=== PATIENT | female | born 1995 | race Caucasian/White ===

== ENCOUNTER → 2019-11-18 15:40 | Outpatient (BNVA) | payer SELFPAY | PROVIDERS: Family Provider Nurse Practitioner Family; PCP Nurse Practitioner Family; Visit Provider Nurse Practitioner Family | DX: R39.9 Unspecified symptoms and signs involving the genitourinary system (principal); E03.9 Hypothyroidism, unspecified | CPT/HCPCS: 80053; 81000; 84443 ==

== ENCOUNTER 2020-01-29 11:34 | Emergency (ER) | payer SELFPAY ==
[2020-01-29 11:43] VITALS: BP 141/88; PULSE 88; RESP 18; TEMP 36.7; O2SAT 99; BMI 48.4
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
--- NOTE | 2020-01-29 11:55 | US_ITS ---
WS: [id number] PELVIC ULTRASOUND REASON FOR VISIT: vaginal bleeding, pain TECHNIQUE: Grayscale and Doppler transabdominal and transvaginal pelvic ultrasound. FINDINGS: Uterus measures 7.7 cm x 4.7 cm x 4.7 cm, right ovary measures 2.7 cm x 1.2 cm x 2.3 cm, and left ova ry measures 3.4 cm x 2.5 cm x 3.4 cm. Cervix shows a cystic structure measures 0.79 The endometrium is thickened measures 1.37 cm. US/US pelvic with transvaginal IMPRESSION: Thickened irregular endometrium cannot exclude endometrial neoplasm Nabothian cyst of the cervix
[2020-01-29] MEDS: sodium chloride 0.9% 500 ML 999 ML IV (12:18)
[2020-01-29] MEDS: ketorolac 30 mg/mL INJ 15 MG IVP (12:19)
[2020-01-29 12:21] VITALS: RESP 18
[2020-01-29] MEDS: morphine 4 mg/mL SDV 1 mL 2 MG IVP (12:21)
[2020-01-29 12:25] LABS: Basophils # 0.1 10^3/uL (0.0-0.1); Basophils % 0.6 %; Eosinophils # 0.1 10^3/uL (0.0-0.8); Eosinophils % 0.9 %; Hematocrit 39.7 % (37.0-47.0); Hemoglobin 12.1 g/dL (11.5-15.3); Lymphocytes # 2.1 10^3/uL (0.8-4.8); Lymphocytes % 26.7 %; Mean Corpuscular HGB Conc 30.5 g/dL (30.0-36.0); Mean Corpuscular Hemoglobin 23.9 pg (28.0-34.0); Mean Corpuscular Volume 78.5 fL (81-99); Mean Platelet Volume 10.3 fL (7.4-10.4); Monocytes # 0.5 10^3/uL (0.2-0.9); Monocytes % 6.6 %; Neutrophils % 65.1 %; Nucleated Red Blood Cells % 0 %; Platelet Count 428 10^3/cmm (130-400); Red Blood Count 5.06 10^6/uL (4.1-5.3); Red Cell Distribution Width 16.4 % (12.1-15.1); White Blood Count 7.8 10^3/uL (4.0-10.0)
[2020-01-29 12:35] VITALS: BP 120/65; RESP 18; O2SAT 97
[2020-01-29 12:36] LABS: HCG, Serum Qual Negative (Negative)
[2020-01-29 12:38] LABS: Add Urine Microscopic? YES; Bilirubin Urine Neg (NEGATIVE); Blood Urine 3+ (Negative); Glucose Urine UA Norm (Normal); Ketones Urine Negative (Negative); Leukocyte Esterase Urine Negative (Negative); Nitrate Urine Negative (Negative); Protein Urine Neg (Negative); Urine Color Yellow (Yellow); Urobilinogen Urine Norm (Negative); pH Urine 6 (5-7)
[2020-01-29 12:39] LABS: Add Urine Culture? Yes; Bacteria Urine TRACE; RBC Urine 80-100 /hpf (0-2); Squamous Epithelial Cell Urine 0-4 (0-5); WBC Urine 0-4 /hpf (0-5)
[2020-01-29 12:40] LABS: Alanine Aminotransferase 34 U/L (0-33); Albumin Level 4.5 g/dL (3.5-5.2); Alkaline Phosphatase 71 IU/L (35-105); Anion Gap 17.1 (5-19); Aspartate Amino Transferase 19 U/L (0-32); Blood Urea Nitrogen 10 mg/dL (6-20); Calcium 9.7 mg/dL (8.5-10.5); Carbon Dioxide 22 mmol/L (22-29); Chloride 103 mmol/L (98-107); Globulin 3.5 g/dL (1.3-4.6); Glomerular Filtration Rate 151.6 mL/min (90-130); Glucose 86 mg/dL (65-115); Osmolality Calculated 281 mOsm/kg (285-295); Potassium 4.1 mmol/L (3.5-5.1); Sodium 138 mmol/L (136-145); Total Bilirubin 0.4 mg/dL (0.15-1.2)
[2020-01-29 14:40] VITALS: BP 118/64; PULSE 67; RESP 18; O2SAT 96
== END 2020-01-29 14:40 | disposition home or self-care (01) ==
PROVIDERS: Emergency Provider Nurse Practitioner Family; Family Provider Nurse Practitioner Family; PCP Nurse Practitioner Family
DX: E28.2 Polycystic ovarian syndrome (principal); R10.2 Pelvic and perineal pain
CPT/HCPCS: 12345; 76830; 76856; 80053; 81001; 84703; 85025; 86850; 86900; 87086; 96361; 96374; 96375; 99283; J1885; J2270; J7040

== ENCOUNTER 2020-04-03 18:28 | Emergency (ER) | payer MEDICAID, SELFPAY ==
--- NOTE | 2020-04-03 18:33 | US_ITS ---
WS: [id number] ULTRASOUND EARLY TECHNIQUE: Transabdominal sonography of the pelvis was performed. Followed by transvaginal sonography to better evaluate the uterus and ovaries. CLINICAL INFORMATION: threatened miscarriage LMP: 02/07/2020 Beta hCG: Unknown. COMPARISON: January 29, 2020 FINDINGS: UTERUS AND GESTATIONAL SAC Intrauterine gestations: Gestational sac with pole and no visualized movement. No cardiac activ ity. Estimated gestational age: 7w5d Zephyr rump length (CRL): 1.4 cm. heart motion: 0 BPM. Subchorionic hemorrhage: None. OVARIES Right ovary: Normal. Left ovary: Normal. FREE FLUID None. US/US OB <=14 wk fetus w transvag IMPRESSION: 1. Gestational sac with pole and no visualized movement or cardiac activ ity compatible with demise. Recommend short interval follow-up for confir mation. 2. No free fluid in the pelvis.
[2020-04-03 18:50] VITALS: BP 134/90; PULSE 86; RESP 14; TEMP 35.8; O2SAT 100; BMI 47.0
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
[2020-04-03] MEDS: ondansetron 4 MG Tablet PO (20:12)
[2020-04-03 20:15] VITALS: O2SAT 99
[2020-04-03 20:18] VITALS: BP 132/78; PULSE 84; RESP 14; TEMP 36.4; O2SAT 99
== END 2020-04-03 20:20 | disposition home or self-care (01) ==
PROVIDERS: Emergency Provider Emergency Medicine; PCP Nurse Practitioner Family
DX: O20.0 Threatened abortion (principal); Z3A.01 Less than 8 weeks gestation of pregnancy
CPT/HCPCS: 12345; 76801; 76817; 99281; 99283; Q0162

== ENCOUNTER → 2020-04-06 10:17 | Outpatient (BNVA) | payer MEDICAID, SELFPAY | PROVIDERS: PCP Nurse Practitioner Family; Visit Provider Nurse Practitioner Women's Health | DX: R30.0 Dysuria (principal); O20.0 Threatened abortion; E03.9 Hypothyroidism, unspecified; E28.2 Polycystic ovarian syndrome; O21.9 Vomiting of pregnancy, unspecified; Z11.3 Encounter for screening for infections with a predominantly sexual mode of transmission | CPT/HCPCS: 80053; 81000; 84439; 84443; 84702; 85025; 87491; 87591; 87661 ==

== ENCOUNTER 2020-04-10 01:57 | Emergency (ER) | payer MEDICAID, SELFPAY ==
[2020-04-10 02:14] VITALS: BP 126/78; PULSE 92; RESP 19; TEMP 36.6; O2SAT 100; BMI 47.0
[2020-04-10 02:31] LABS: Basophils # 0.1 10^3/uL (0.0-0.1); Basophils % 0.7 %; Eosinophils # 0.1 10^3/uL (0.0-0.8); Eosinophils % 0.9 %; Hemoglobin 10.8 g/dL (11.5-15.3); Lymphocytes # 2.4 10^3/uL (0.8-4.8); Lymphocytes % 27.6 %; Mean Corpuscular HGB Conc 28.4 g/dL (30.0-36.0); Mean Corpuscular Hemoglobin 21.9 pg (28.0-34.0); Mean Corpuscular Volume 76.9 fL (81-99); Mean Platelet Volume 10.1 fL (7.4-10.4); Monocytes # 0.7 10^3/uL (0.2-0.9); Monocytes % 7.8 %; Neutrophils # 5.45 10^3/uL (1.8-7.7); Neutrophils % 62.8 %; Nucleated Red Blood Cells % 0 %; Platelet Count 451 10^3/cmm (130-400); Red Blood Count 4.94 10^6/uL (4.1-5.3); Red Cell Distribution Width 15.1 % (12.1-15.1); White Blood Count 8.7 10^3/uL (4.0-10.0)
[2020-04-10 02:45] LABS: INR 0.97 (0.8-1.2)
[2020-04-10 02:46] LABS: Partial Thromboplastin Time 35.1 SECONDS (23.9-36.7)
[2020-04-10 03:00] LABS: Alanine Aminotransferase 28 U/L (0-33); Albumin Level 4.3 g/dL (3.5-5.2); Alkaline Phosphatase 63 IU/L (35-105); Anion Gap 14.4 (5-19); Aspartate Amino Transferase 20 U/L (0-32); Blood Urea Nitrogen 8 mg/dL (6-20); Calcium 9.1 mg/dL (8.5-10.5); Carbon Dioxide 23 mmol/L (22-29); Chloride 102 mmol/L (98-107); Globulin 3.5 g/dL (1.3-4.6); Glomerular Filtration Rate 151.6 mL/min (90-130); Glucose 123 mg/dL (65-115); Osmolality Calculated 277 mOsm/kg (285-295); Potassium 4.4 mmol/L (3.5-5.1); Sodium 135 mmol/L (136-145); Total Bilirubin 0.3 mg/dL (0.15-1.2); Total Protein 7.8 g/dL (6.6-8.7)
[2020-04-10 03:14] VITALS: BP 114/68; BP 122/76; BP 94/71; PULSE 78; PULSE 89; PULSE 94
[2020-04-10 04:07] VITALS: RESP 18
[2020-04-10] MEDS: HYDROmorphone 1 mg/mL INJ 1 mL IVP (04:07)
[2020-04-10] MEDS: ondansetron 2 mg/ML SDV 2 mL 4 MG IVP (04:07)
[2020-04-10] MEDS: sodium chloride 0.9% 1,000 ML 999 ML IV ×2 (04:08→05:16)
[2020-04-10 05:00] VITALS: BP 111/76; PULSE 67; RESP 16; O2SAT 99
--- NOTE | 2020-04-10 05:48 | PC.NURSE ---
PT AMBULATES IN HODGE WITHOUT DIFFICULTY.
[2020-04-10 06:41] VITALS: BP 101/63; PULSE 81; RESP 16; O2SAT 100
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
== END 2020-04-10 06:49 | disposition home or self-care (01) ==
PROVIDERS: Nurse Practitioner Family; Emergency Provider Emergency Medicine; PCP Nurse Practitioner Family
DX: O03.4 Incomplete spontaneous abortion without complication (principal)
CPT/HCPCS: 12345; 80053; 84702; 85025; 85610; 85730; 86900; 96361; 96374; 96375; 99283; J1170; J2405; J7030

== ENCOUNTER 2020-04-11 09:16 | Outpatient (CLI) | payer MEDICAID, SELFPAY | END 2020-04-11 09:17 | disposition home or self-care (01) | LOC: LAB 09:19 | PROVIDERS: PCP Nurse Practitioner Family; Visit Provider Nurse Practitioner Women's Health | DX: O20.0 Threatened abortion (principal) | CPT/HCPCS: 36415; 84702; 88305 ==

== ENCOUNTER → 2020-04-20 14:17 | Outpatient (BNVA) | payer SELFPAY | PROVIDERS: PCP Nurse Practitioner Family; Visit Provider Obstetrics & Gynecology | DX: O03.4 Incomplete spontaneous abortion without complication (principal) | CPT/HCPCS: 76857 ==

== ENCOUNTER 2020-04-24 11:29 | Emergency (ER) | payer MEDICAID, SELFPAY ==
--- NOTE | 2020-04-24 11:38 | XRR_ITS ---
PROCEDURE INFORMATION: Exam: XR Left Foot Complete Exam date and time: 04/24/2020 12:54 PM Age: 24 years old Clinical indication: Injury or trauma; Fall; Initial encounter; Blunt trauma; Foot; Left TECHNIQUE: Imaging protocol: XR Left foot. Views: 3 or more views. COMPARISON: No relevant prior studies available. FINDINGS: Bones/joints: Unremarkable Soft tissues: Normal. XR/XR foot LT min 3V* [id number] IMPRESSION: No acute findings.
[2020-04-24 11:57] VITALS: BP 118/77; PULSE 79; RESP 16; TEMP 36.8; O2SAT 97; BMI 47.0
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
--- NOTE | 2020-04-24 13:05 | XRR_ITS ---
PROCEDURE INFORMATION: Exam: XR Left Ankle Exam date and time: 04/24/2020 1:28 PM Age: 24 years old Clinical indication: Injury or trauma; Fall; Initial encounter; Sprain or strain; Ankle; Left TECHNIQUE: Imaging protocol: XR Left ankle. Views: 3 or more views. COMPARISON: CR (LOW EXM, ) 04/24/2020 12:32 PM FINDINGS: Bones/joints: Unremarkable Soft tissues: Normal. XR/XR ankle LT min 3V* [id number] IMPRESSION: No acute findings.
[2020-04-24 13:50] VITALS: PULSE 70; RESP 16
--- NOTE | 2020-04-24 13:51 | PC.NURSE ---
2 inch luciano wrap applied to left ankle
== END 2020-04-24 13:50 | disposition home or self-care (01) ==
PROVIDERS: Emergency Provider Nurse Practitioner Family; PCP Nurse Practitioner Family
DX: S93.402A Sprain of unspecified ligament of left ankle, initial encounter (principal); S96.912A Strain of unspecified muscle and tendon at ankle and foot level, left foot, initial encounter; W01.0XXA Fall on same level from slipping, tripping and stumbling without subsequent striking against object, initial encounter
CPT/HCPCS: 12345; 73610; 73630; 99283

== ENCOUNTER → 2020-05-04 09:05 | Outpatient (BNVA) | payer SELFPAY | PROVIDERS: PCP Nurse Practitioner Family; Visit Provider Obstetrics & Gynecology | DX: O03.4 Incomplete spontaneous abortion without complication (principal); R30.0 Dysuria | CPT/HCPCS: 80053; 81000; 87077; 87086; 87186 ==

== ENCOUNTER → 2020-05-05 08:40 | Outpatient (BNVA) | payer SELFPAY | PROVIDERS: PCP Nurse Practitioner Family; Visit Provider Obstetrics & Gynecology | DX: O03.4 Incomplete spontaneous abortion without complication (principal) | CPT/HCPCS: 84702 ==

== ENCOUNTER → 2020-05-17 14:34 | Outpatient (BNVA) | payer SELFPAY | PROVIDERS: PCP Nurse Practitioner Family; Visit Provider Nurse Practitioner Family | DX: Z11.59 Encounter for screening for other viral diseases (principal); J30.89 Other allergic rhinitis | CPT/HCPCS: 87635 ==

== ENCOUNTER → 2020-05-24 13:29 | Outpatient (BNVA) | payer SELFPAY | PROVIDERS: PCP Nurse Practitioner Family; Visit Provider Obstetrics & Gynecology | DX: Z12.4 Encounter for screening for malignant neoplasm of cervix (principal) | CPT/HCPCS: 88175 ==

== ENCOUNTER → 2020-07-19 11:36 | Outpatient (BNVA) | payer MEDICAID, SELFPAY | PROVIDERS: PCP Nurse Practitioner Family; Visit Provider Nurse Practitioner Family | DX: Z20.828 Contact with and (suspected) exposure to other viral communicable diseases (principal) | CPT/HCPCS: 87635 ==

== ENCOUNTER → 2020-08-11 15:36 | Outpatient (BNVA) | payer SELFPAY | PROVIDERS: PCP Nurse Practitioner Family; Visit Provider Obstetrics & Gynecology | DX: N93.9 Abnormal uterine and vaginal bleeding, unspecified (principal) | CPT/HCPCS: 76830; 85025 ==

== ENCOUNTER → 2021-02-02 10:30 | Outpatient (BNVA) | payer SELFPAY | PROVIDERS: PCP Nurse Practitioner Family; Visit Provider Obstetrics & Gynecology Reproductive Endocrinology | DX: E34.9 Endocrine disorder, unspecified (principal); R53.83 Other fatigue; Z13.29 Encounter for screening for other suspected endocrine disorder; N92.6 Irregular menstruation, unspecified; N91.2 Amenorrhea, unspecified; E22.8 Other hyperfunction of pituitary gland | CPT/HCPCS: 80053; 82670; 83001; 83002; 83036; 83498; 83520; 83525; 84144; 84146; 84403; 84439; 84443; 84702; 85025 ==

== ENCOUNTER → 2021-03-07 08:33 | Outpatient (BNVA) | payer SELFPAY | PROVIDERS: PCP Nurse Practitioner Family; Visit Provider Nurse Practitioner Women's Health | DX: Z13.1 Encounter for screening for diabetes mellitus (principal) | CPT/HCPCS: 82951 ==

== ENCOUNTER 2021-03-29 09:28 | Emergency (ER) | payer OTHER, SELFPAY ==
--- NOTE | 2021-03-29 10:02 | ECG_ITS ---
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 Measurements Intervals [place] Rate: 85 P: 60 CO: 150 QRS: 42 QRSD: 90 T: 7 QT: 366 QTc: 436 Interpretive Statements SINUS RHYTHM No previous ECG available for comparison Electronically Signed On 03-29-2021 20:25:09 CDT by Torie Roblero M.D. [email or web address]
[2021-03-29 10:52] VITALS: BP 129/70; PULSE 82; RESP 18; TEMP 36.6; O2SAT 99; BMI 48.4
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
[2021-03-29 11:17] VITALS: BP 124/73; PULSE 96; RESP 18; O2SAT 98
[2021-03-29 11:29] VITALS: RESP 16
[2021-03-29] MEDS: ketorolac 30 mg/mL INJ IVP (11:29)
[2021-03-29] MEDS: morphine 4 mg/mL SDV 1 mL IVP (11:29)
[2021-03-29 11:36] LABS: Basophils % 0.5 %; Eosinophils % 1.1 %; Hematocrit 37.3 % (37.0-47.0); Hemoglobin 10.8 g/dL (11.5-15.3); Lymphocytes # 0.9 10^3/uL (0.8-4.8); Lymphocytes % 23.7 %; Mean Corpuscular Hemoglobin 22.5 pg (28.0-34.0); Mean Corpuscular Volume 77.5 fL (81-99); Mean Platelet Volume 10.5 fL (7.4-10.4); Monocytes # 0.4 10^3/uL (0.2-0.9); Monocytes % 9.8 %; Neutrophils # 2.43 10^3/uL (1.8-7.7); Neutrophils % 64.6 %; Nucleated Red Blood Cells % 0 %; Platelet Count 299 10^3/cmm (130-400); Red Blood Count 4.81 10^6/uL (4.1-5.3); Red Cell Distribution Width 15.7 % (12.1-15.1); White Blood Count 3.8 10^3/uL (4.0-10.0)
[2021-03-29 11:57] LABS: Alanine Aminotransferase 44 U/L (0-33); Albumin Level 3.9 g/dL (3.5-5.2); Alkaline Phosphatase 80 IU/L (35-105); Anion Gap 13.3 (5-19); Aspartate Amino Transferase 28 U/L (0-32); Blood Urea Nitrogen 8 mg/dL (6-20); Calcium 8.2 mg/dL (8.5-10.5); Carbon Dioxide 22 mmol/L (22-29); Chloride 107 mmol/L (98-107); Globulin 2.9 g/dL (1.3-4.6); Glomerular Filtration Rate 194.5 mL/min (90-130); Glucose 89 mg/dL (65-115); Lipase 21 U/L (13-60); Osmolality Calculated 284 mOsm/kg (285-295); Potassium 4.3 mmol/L (3.5-5.1); Sodium 138 mmol/L (136-145); Total Bilirubin 0.2 mg/dL (0.15-1.2); Total Protein 6.8 g/dL (6.6-8.7)
[2021-03-29 12:11] VITALS: BP 121/55; PULSE 92; RESP 16; O2SAT 96
[2021-03-29 12:19] LABS: HCG, Serum Qual Negative (Negative)
== END 2021-03-29 12:13 | disposition home or self-care (01) ==
PROVIDERS: Emergency Provider Family Medicine; PCP Nurse Practitioner Family
DX: R10.2 Pelvic and perineal pain (principal)
CPT/HCPCS: 80053; 83690; 84703; 85025; 93005; 96374; 96375; 99283; J1885; J2270

== ENCOUNTER → 2021-04-14 15:00 | Outpatient (BNVA) | payer OTHER, SELFPAY | PROVIDERS: PCP Nurse Practitioner Family; Visit Provider Obstetrics & Gynecology | DX: N83.209 Unspecified ovarian cyst, unspecified side (principal) | CPT/HCPCS: 76830 ==

== ENCOUNTER → 2021-06-12 10:30 | Outpatient (BNVA) | payer OTHER, SELFPAY | PROVIDERS: PCP Nurse Practitioner Family; Visit Provider Nurse Practitioner Family | DX: M79.672 Pain in left foot (principal) | CPT/HCPCS: 73630 ==

== ENCOUNTER → 2021-06-19 08:52 | Outpatient (BNVA) | payer OTHER, SELFPAY | PROVIDERS: PCP Nurse Practitioner Family; Visit Provider Nurse Practitioner Family | DX: J02.9 Acute pharyngitis, unspecified (principal); M79.673 Pain in unspecified foot; M79.672 Pain in left foot | CPT/HCPCS: 87071; 87880 ==

== ENCOUNTER → 2021-07-13 13:09 | Outpatient (BNVA) | payer OTHER, SELFPAY | PROVIDERS: PCP Nurse Practitioner Family; Referring Provider Nurse Practitioner Women's Health; Visit Provider Nurse Practitioner Women's Health | DX: N97.9 Female infertility, unspecified (principal) | CPT/HCPCS: 76830 ==

== ENCOUNTER → 2021-07-25 16:00 | Outpatient (BNVA) | payer OTHER, SELFPAY | PROVIDERS: PCP Nurse Practitioner Family; Visit Provider Nurse Practitioner Family | DX: E03.9 Hypothyroidism, unspecified (principal); N92.6 Irregular menstruation, unspecified | CPT/HCPCS: 80053; 82670; 83001; 83002; 84144; 84443; 84702; 85025 ==

== ENCOUNTER → 2021-08-08 13:15 | Outpatient (BNVA) | payer OTHER, SELFPAY | PROVIDERS: PCP Nurse Practitioner Family; Referring Provider Nurse Practitioner Family; Visit Provider Podiatrist Foot & Ankle Surgery | DX: M79.672 Pain in left foot (principal) | CPT/HCPCS: 73630 ==

== ENCOUNTER → 2021-09-05 13:58 | Outpatient (BNVA) | payer OTHER, SELFPAY | PROVIDERS: PCP Nurse Practitioner Family; Visit Provider Podiatrist Foot & Ankle Surgery | DX: M79.673 Pain in unspecified foot (principal); M84.375A Stress fracture, left foot, initial encounter for fracture | CPT/HCPCS: 73630 ==

== ENCOUNTER → 2021-11-02 11:42 | Outpatient (BNVA) | payer OTHER, SELFPAY | PROVIDERS: PCP Nurse Practitioner Family; Visit Provider Podiatrist Foot & Ankle Surgery | DX: M84.375A Stress fracture, left foot, initial encounter for fracture (principal); X58.XXXA Exposure to other specified factors, initial encounter | CPT/HCPCS: 73630 ==

== ENCOUNTER 2021-11-02 14:41 | Outpatient (CLI) | payer OTHER, SELFPAY | END 2021-11-02 14:42 | disposition home or self-care (01) | LOC: SPT 14:43 | PROVIDERS: PCP Nurse Practitioner Family; Visit Provider Podiatrist Foot & Ankle Surgery | DX: Z46.89 Encounter for fitting and adjustment of other specified devices (principal); M72.2 Plantar fascial fibromatosis | CPT/HCPCS: 97760; L4397 ==

== ENCOUNTER → 2021-11-08 13:43 | Outpatient (BNVA) | payer OTHER, SELFPAY | PROVIDERS: PCP Nurse Practitioner Family; Visit Provider Nurse Practitioner Family | DX: E03.9 Hypothyroidism, unspecified (principal) | CPT/HCPCS: 84443 ==

== ENCOUNTER → 2021-11-21 14:25 | Outpatient (BNVA) | payer OTHER, SELFPAY | PROVIDERS: PCP Nurse Practitioner Family; Visit Provider Podiatrist Foot & Ankle Surgery | DX: M79.672 Pain in left foot (principal) | CPT/HCPCS: 73630 ==

== ENCOUNTER → 2022-02-12 09:24 | Outpatient (BNVA) | payer SELFPAY | PROVIDERS: PCP Nurse Practitioner Family; Visit Provider Nurse Practitioner Family | DX: Z20.822 Contact with and (suspected) exposure to COVID-19 (principal); N39.0 Urinary tract infection, site not specified; Z11.52 Encounter for screening for COVID-19; R30.0 Dysuria | CPT/HCPCS: 87635; 87801 ==

== ENCOUNTER → 2022-05-03 08:56 | Outpatient (BNVA) | payer SELFPAY | PROVIDERS: PCP Nurse Practitioner Family; Visit Provider Nurse Practitioner Family | DX: R30.0 Dysuria (principal); N39.0 Urinary tract infection, site not specified; H10.10 Acute atopic conjunctivitis, unspecified eye | CPT/HCPCS: 81000 ==

== ENCOUNTER → 2022-05-29 09:55 | Outpatient (BNVA) | payer OTHER, SELFPAY | PROVIDERS: PCP Nurse Practitioner Family; Visit Provider Nurse Practitioner Family | DX: D64.9 Anemia, unspecified (principal); E03.9 Hypothyroidism, unspecified | CPT/HCPCS: 84443; 85025 ==

== ENCOUNTER → 2022-06-29 08:48 | Outpatient (BNVA) | payer SELFPAY | PROVIDERS: PCP Nurse Practitioner Family; Visit Provider Obstetrics & Gynecology | DX: N92.6 Irregular menstruation, unspecified (principal) | CPT/HCPCS: 85025 ==

== ENCOUNTER → 2022-07-12 11:32 | Outpatient (BNVA) | payer SELFPAY | PROVIDERS: PCP Nurse Practitioner Family; Visit Provider Nurse Practitioner Family | DX: E28.2 Polycystic ovarian syndrome (principal); N93.9 Abnormal uterine and vaginal bleeding, unspecified | CPT/HCPCS: 85025 ==

== ENCOUNTER → 2022-08-29 08:53 | Outpatient (BNVA) | payer BC, SELFPAY | PROVIDERS: PCP Nurse Practitioner Family; Visit Provider Nurse Practitioner Family | DX: J02.9 Acute pharyngitis, unspecified (principal); R05.9 Cough, unspecified; J06.9 Acute upper respiratory infection, unspecified | CPT/HCPCS: 87071; 87400; 87426; 87880 ==

== ENCOUNTER → 2022-09-11 15:21 | Outpatient (BNVA) | payer BC, MEDICAID, SELFPAY | PROVIDERS: PCP Nurse Practitioner Family; Visit Provider Nurse Practitioner Family | DX: R30.0 Dysuria (principal); E03.9 Hypothyroidism, unspecified; N39.0 Urinary tract infection, site not specified; N89.8 Other specified noninflammatory disorders of vagina | CPT/HCPCS: 81000; 87086; 87491; 87591; 87661 ==

== ENCOUNTER → 2022-09-17 10:19 | Outpatient (BNVA) | payer BC, MEDICAID, SELFPAY | PROVIDERS: PCP Nurse Practitioner Family; Visit Provider Nurse Practitioner Family | DX: R30.0 Dysuria (principal); N39.0 Urinary tract infection, site not specified; N92.1 Excessive and frequent menstruation with irregular cycle; D50.9 Iron deficiency anemia, unspecified; Z92.89 Personal history of other medical treatment; R82.90 Unspecified abnormal findings in urine | CPT/HCPCS: 80053; 81000; 85025 ==

== ENCOUNTER 2023-01-29 19:52 | Emergency (ER) | payer BC, MEDICAID, SELFPAY ==
[2023-01-29 20:04] VITALS: BP 136/94; PULSE 77; RESP 18; TEMP 36.6; O2SAT 99; BMI 45.6
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
[2023-01-29 20:42] LABS: Basophils % 0.4 %; Eosinophils # 0.1 10^3/uL (0.0-0.8); Eosinophils % 1.6 %; Hematocrit 33.9 % (37.0-47.0); Hemoglobin 10.4 g/dL (11.5-15.3); Lymphocytes # 2.9 10^3/uL (0.8-4.8); Lymphocytes % 32.3 %; Mean Corpuscular HGB Conc 30.7 g/dL (30.0-36.0); Mean Corpuscular Hemoglobin 24.4 pg (28.0-34.0); Mean Corpuscular Volume 79.6 fl (81-99); Mean Platelet Volume 9.8 fL (7.4-10.4); Monocytes # 0.6 10^3/uL (0.2-0.9); Monocytes % 6.7 %; Neutrophils # 5.27 10^3/uL (1.8-7.7); Neutrophils % 58.8 %; Nucleated Red Blood Cells % 0 %; Platelet Count 385 10^3/cmm (130-400); Red Blood Count 4.26 10^6/uL (4.1-5.3); Red Cell Distribution Width 14.8 % (12.1-15.1)
[2023-01-29] MEDS: fentaNYL 50 mcg/mL INJ 2mL IVP (20:53)
--- NOTE | 2023-01-29 20:58 | CTR_ITS ---
PROCEDURE INFORMATION: Exam: CT Abdomen And Pelvis With Contrast Exam date and time: 01/29/2023 9:12 PM Age: 27 years old Clinical indication: Abdominal pain; Generalized; Additional info: Low abd pain, heavy menstral bleeding >3weeks, R/O carcinoma TECHNIQUE: Imaging protocol: Computed tomography of the abdomen and pelvis with contrast. Radiation optimization: All CT scans at this facility use at least one of these dose optimization techniques: automated exposure control; mA and/or kV adjustment per patient size (includes targeted exams where dose is matched to clinical indication); or iterative reconstruction. Contrast material: OMNI 350; Contrast volume: 100 ml; Contrast route: INTRAVENOUS (IV); REPORTING DATA: Count of CT and Cardiac NM exams in prior 12 months: This patient has received 0 known CTs and 0 known cardiac nuclear medicine studies in the 12 months prior to the current study. COMPARISON: CR XR hip RT 2-3V wo/w pel* [id number] 05/16/2017 11:16 AM RADIATION DOSE METRICS: Total DLP (mGy-cm): 1260.63 FINDINGS: Lungs: Right lower lobe atelectasis versus minimal infiltrate. Liver: Hepatic steatosis. Gallbladder and bile ducts: Normal. No calcified stones. No ductal dilation. Pancreas: Normal. No ductal dilation. Spleen: Normal. No splenomegaly. Adrenal glands: Normal. No mass. Kidneys and ureters: Normal. No hydronephrosis. Stomach and bowel: Prominent fluid in the small bowel without dilation, please correlate for enteritis. Appendix: No evidence of appendicitis. Intraperitoneal space: Unremarkable. No free air. No significant fluid collection. Vasculature: Unremarkable. No abdominal aortic aneurysm. Lymph nodes: Unremarkable. No enlarged lymph nodes. Urinary bladder: Unremarkable as visualized. Reproductive: Small amount of fluid in the uterine cavity may be related to menstrual status, pelvic ultrasound could further characterize this. Bones/joints: Unremarkable. No acute fracture. Soft tissues: Unremarkable. Other findings: Small amount of nonspecific fluid in the pelvis. CT/CT abdomen pelvis w con* [id number] IMPRESSION: 1. Prominent fluid in the small bowel without dilation, please correlate for enteritis. 2. Small amount of nonspecific fluid in the pelvis. 3. Small amount of fluid in the uterine cavity may be related to menstrual status, pelvic ultrasound could further characterize this. 4. Right lower lobe atelectasis versus minimal infiltrate. 5. Hepatic steatosis.
[2023-01-29] MEDS: ketorolac 30 mg/mL INJ 15 MG IVP (20:59)
[2023-01-29 21:00] VITALS: BP 134/87; PULSE 87; O2SAT 95
[2023-01-29] MEDS: ondansetron 2 mg/ML SDV 2 mL 4 MG IVP (21:02)
[2023-01-29 21:04] LABS: HCG, Serum Qual Negative (Negative)
[2023-01-29 21:11] LABS: Add Urine Culture? No; Add Urine Microscopic? YES; Bacteria Urine TRACE /hpf; Bilirubin Urine Neg (Negative); Blood Urine 2+ (Negative); Glucose Urine UA Norm (Normal); Ketones Urine Negative (Negative); Leukocyte Esterase Urine Negative (Negative); Mucus Urine TRACE /hpf; Nitrate Urine Negative (Negative); Protein Urine Neg (Negative); Squamous Epithelial Cell Urine 0-4 /hpf (0-5); Urine Appearance Clear (CLEAR); Urine Color Yellow (Yellow); Urobilinogen Urine Norm (Negative); pH Urine 6 (5-7)
[2023-01-29] MEDS: iohexol 350 mg/mL 500 mL Btl (per mL) IV (21:16)
[2023-01-29 21:31] VITALS: BP 125/75; PULSE 70; O2SAT 97
[2023-01-29 21:35] LABS: Alanine Aminotransferase 22 U/L (0-33); Albumin Level 4.1 g/dL (3.5-5.2); Alkaline Phosphatase 62 U/L (35-105); Anion Gap 14.7 (5-19); Aspartate Amino Transferase 13 U/L (0-32); Blood Urea Nitrogen 9 mg/dL (6-20); Calcium 9.1 mg/dL (8.5-10.5); Carbon Dioxide 23 mmol/L (22-29); Chloride 102 mmol/L (98-107); Globulin 3.1 g/dL (1.3-4.6); Glucose 85 mg/dL (65-115); Lipase 37 U/L (13-60); Osmolality Calculated 280 mOsm/kg (285-295); Potassium 3.7 mmol/L (3.5-5.1); Sodium 136 mmol/L (136-145); Total Bilirubin 0.2 mg/dL (0.15-1.2); Total Protein 7.2 g/dL (6.6-8.7)
[2023-01-29 21:46] VITALS: BP 96/51; PULSE 66; O2SAT 98
[2023-01-29] MEDS: HYDROcodone-acetaminophen 5-325 mg Tablet 1 TAB PO (22:18)
[2023-01-29 22:27] VITALS: BP 130/61; PULSE 69; RESP 18; O2SAT 100
== END 2023-01-29 22:31 | disposition home or self-care (01) ==
PROVIDERS: Emergency Medicine; Emergency Provider Nurse Practitioner Family; PCP Nurse Practitioner Family
DX: N92.0 Excessive and frequent menstruation with regular cycle (principal)
CPT/HCPCS: 74177; 80053; 81001; 83690; 84703; 85025; 96374; 96375; 99285; J1885; J2405; J3010; Q9967

== ENCOUNTER 2023-04-02 12:51 | Outpatient (CLI) | payer BC, MEDICAID, SELFPAY ==
[2023-04-02] MEDS: iohexol 350 mg/mL 500 mL Btl (per mL) IV (13:17)
--- NOTE | 2023-04-02 13:30 | CT_ITS ---
WS: [id number] CT ABDOMEN PELVIS TECHNIQUE: Contrast-enhanced CT of the abdomen and pelvis with coronal and sagittal reformatted image s. CLINICAL INFORMATION: R10.31 - Right lower quadrant pain COMPARISON: None. DLP: 1092.[address] scans at [facility] use at least one of these dose optimization techniques: automated e xposure control; mA and/or kV adjustment per patient size (includes targeted exams where dose is matc hed to clinical indication); or iterative reconstruction. FINDINGS: Lung bases are well aerated. Hepatomegaly. Diffuse fatty infiltration of the liver. Spleen size upper limits of normal. Adrenal glands are normal. Normal renal parenchyma enhancement. Hydronephrosis. No rmal pancreatic parenchymal enhancement. Normal gallbladder. Normal portal vein and splenic vein. Angeli iac and SMA are patent. No hydronephrosis in either kidney. Normal caliber abdominal aorta. Normal si gmoid colon. Appendix not well visualized with no evidence of acute appendicitis. Urine distended bladder. Thickened endometrium with uterine enhancement likely physiologic. This is s imilar to the prior examination. Multi follicular ovaries bilaterally. No significant free fluid in t he cul-de-sac. Mild space narrowing L5-S1. IMPRESSION: 1. Hepatomegaly diffuse fatty filtration of the liver. Spleen size upper limits of normal. 2. Appendix is not well visualized and no evidence of acute appendicitis. 3. No hydronephrosis in either kidney 4. Thickened uterine endometrium with enhancing uterus likely physiologic. Multi follicular ovaries bilaterally. 5. No free fluid in the abdomen or pelvis. 6. No acute findings.
== END 2023-04-02 12:52 | disposition home or self-care (01) ==
PROVIDERS: PCP Nurse Practitioner Family; Visit Provider Nurse Practitioner Family
DX: R10.31 Right lower quadrant pain (principal); N85.8 Other specified noninflammatory disorders of uterus; R10.813 Right lower quadrant abdominal tenderness; D50.9 Iron deficiency anemia, unspecified; R11.0 Nausea; R18.8 Other ascites; K76.0 Fatty (change of) liver, not elsewhere classified; R16.0 Hepatomegaly, not elsewhere classified; R93.89 Abnormal findings on diagnostic imaging of other specified body structures
CPT/HCPCS: 74177; 80053; 81000; 83540; 85025; Q9967

== ENCOUNTER → 2023-04-03 15:06 | Outpatient (BNVA) | payer BC, MEDICAID, SELFPAY | PROVIDERS: PCP Nurse Practitioner Family; Visit Provider Nurse Practitioner Family | DX: R10.9 Unspecified abdominal pain (principal); K59.00 Constipation, unspecified | CPT/HCPCS: 74018 ==

== ENCOUNTER → 2023-06-27 08:00 | Outpatient (BNVA) | payer BC, MEDICAID, SELFPAY | PROVIDERS: PCP Nurse Practitioner Family; Visit Provider Nurse Practitioner Family | DX: E28.2 Polycystic ovarian syndrome (principal); N92.1 Excessive and frequent menstruation with irregular cycle | CPT/HCPCS: 84144 ==

== ENCOUNTER → 2023-10-03 16:55 | Outpatient (BNVA) | payer BC, MEDICAID, SELFPAY | PROVIDERS: PCP Nurse Practitioner Family; Visit Provider Nurse Practitioner Family | DX: R03.0 Elevated blood-pressure reading, without diagnosis of hypertension (principal); E03.9 Hypothyroidism, unspecified | CPT/HCPCS: 80053; 80061; 83721; 84443; 85025 ==

== ENCOUNTER → 2023-10-08 10:56 | Outpatient (BNVA) | payer BC, MEDICAID, SELFPAY | PROVIDERS: PCP Nurse Practitioner Family; Visit Provider Nurse Practitioner Family | DX: R73.9 Hyperglycemia, unspecified (principal); D50.9 Iron deficiency anemia, unspecified | CPT/HCPCS: 83036; 83540 ==

== ENCOUNTER → 2023-10-14 09:02 | Outpatient (BNVA) | payer BC, MEDICAID, SELFPAY | PROVIDERS: PCP Nurse Practitioner Family; Visit Provider Nurse Practitioner Family | DX: R50.9 Fever, unspecified (principal); J02.9 Acute pharyngitis, unspecified; J06.9 Acute upper respiratory infection, unspecified | CPT/HCPCS: 87071; 87400; 87426; 87880 ==

== ENCOUNTER 2023-10-28 08:38 | Emergency (ER) | payer BC, MEDICAID, SELFPAY ==
--- NOTE | 2023-10-28 08:43 | US_ITS ---
WS: [id number] US pelv w/transvag [id number] HISTORY: pain, vaginal bleeding. COMPARISON: None available. Uterus: 9.2 cm x 5.8 cm x 5.3 cm. Uterus is top normal size and mildly globular in appearance. Abnormal echogenicity throughout the tracy metrium. Poor distinction of the junctional zone with the endometrium. No discrete mass is identified . Endometrium: 1.5 cm. Endometrium is abnormal. Endometrium is thickened and heterogeneous, predominant ly increased echogenicity. Loss of the normal junctional zone. There are several small complex cystic areas in the junctional zone, subendometrial measuring approximately 8 mm. There is mild increased v ascularity also noted within the myometrium adjacent to the endometrium. The endometrial thickening a nd increased echogenicity extends into the endocervical region. Right ovary: 3.0 cm x 2.3 cm x 1.6 cm. Normal size and vascularity, no cystic or solid masses. Left ovary: 3.3 cm x 2.5 cm x 2.5 cm. Normal size and vascularity, no cystic or solid masses. No free fluid in the cul-de-sac. IMPRESSION: 1. Uterus is top normal size and slightly globular appearance and heterogeneous. 2. Abnormal endometrium. Thickened echogenic endometrium extends into the endocervical region. There is loss of the normal endomyometrial junction and subendometrial cysts. These findings are most like ly related to adenomyosis. 3. No free fluid. Adnexa are normal.
[2023-10-28 09:01] VITALS: BP 156/86; PULSE 91; RESP 16; TEMP 36.6; O2SAT 97; BMI 47.1
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
[2023-10-28 09:42] LABS: Basophils # 0.1 10^3/uL (0.0-0.1); Eosinophils # 0.1 10^3/uL (0.0-0.8); Eosinophils % 1.4 %; Hematocrit 39.8 % (36-47); Lymphocytes # 1.7 10^3/uL (0.8-4.8); Lymphocytes % 27.3 %; Mean Corpuscular HGB Conc 31.4 g/dL (30-55); Mean Corpuscular Hemoglobin 24.9 pg (27-33); Mean Corpuscular Volume 79.3 fl (85-98); Mean Platelet Volume 9.7 fL (7.4-10.4); Monocytes # 0.4 10^3/uL (0.2-0.9); Monocytes % 6.2 %; Neutrophils % 63.8 %; Nucleated Red Blood Cells % 0 %; Platelet Count 342 10^3/cmm (157-399); Red Blood Count 5.02 10^6/uL (3.85-5.65); Red Cell Distribution Width 15.4 % (12.1-15.1); White Blood Count 6.27 10^3/uL (3.29-11.43)
[2023-10-28] MEDS: sodium chloride 0.9% 1,000 ML 999 ML IV (10:11)
[2023-10-28 10:22] VITALS: RESP 18; O2SAT 98
[2023-10-28] MEDS: morphine 4 mg/mL SDV 1 mL IVP (10:22)
[2023-10-28] MEDS: ondansetron 2 mg/ML SDV 2 mL 4 MG IVP (10:23)
[2023-10-28 10:24] LABS: Alanine Aminotransferase 29 U/L (0-33); Alkaline Phosphatase 72 U/L (35-105); Anion Gap 15.1 (5-19); Aspartate Amino Transferase 18 U/L (0-32); Blood Urea Nitrogen 10 mg/dL (6-20); Calcium 8.6 mg/dL (8.5-10.5); Carbon Dioxide 21 mmol/L (22-29); Chloride 104 mmol/L (98-107); Creatinine Clr Calc Pharmacy 250.1264; Globulin 3.2 g/dL (1.3-4.6); Glomerular Filtration Rate 146.9 mL/min (90-130); Glucose 107 mg/dL (65-115); Osmolality Calculated 282 mOsm/kg (285-295); Potassium 4.1 mmol/L (3.5-5.1); Sodium 136 mmol/L (136-145); Total Bilirubin 0.4 mg/dL (0.15-1.2); Total Protein 7.2 g/dL (6.6-8.7)
[2023-10-28 10:29] VITALS: BP 156/83; PULSE 83; RESP 18; O2SAT 96
[2023-10-28 10:43] VITALS: BP 113/76; PULSE 80; RESP 18; O2SAT 96
[2023-10-28 11:22] VITALS: BP 130/56; O2SAT 96
[2023-10-28 11:23] LABS: Add Urine Microscopic? YES; Bilirubin Urine Neg (Negative); Blood Urine 3+ (Negative); Glucose Urine UA Norm (Normal); Ketones Urine Negative (Negative); Leukocyte Esterase Urine Trace (Negative); Nitrate Urine Negative (Negative); Protein Urine 1+ (Negative); Specific Gravity, Urine 1.015 (1.005-1.030); Urine Appearance Cloudy (CLEAR); Urine Color Yellow (Yellow); Urobilinogen Urine 1 mg/dL (Negative); pH Urine 5 (5-7)
[2023-10-28 11:24] LABS: Add Urine Culture? Yes; Bacteria Urine 1+ /hpf; Mucus Urine TRACE /hpf; RBC Urine TOO NUMEROUS TO CNT /hpf (0-2)
[2023-10-28 12:04] VITALS: BP 130/56; PULSE 80; RESP 16; O2SAT 96
== END 2023-10-28 12:07 | disposition home or self-care (01) ==
PROVIDERS: Family Medicine; Emergency Provider Physician Assistant; PCP Nurse Practitioner Family
DX: N92.5 Other specified irregular menstruation (principal)
CPT/HCPCS: 76830; 76856; 80053; 81001; 84702; 85025; 87086; 96374; 96375; 99284; J2270; J2405; J7030

== ENCOUNTER 2024-02-29 13:37 | Emergency (ER) | payer BC, MEDICAID, SELFPAY ==
[2024-02-29 13:47] VITALS: BP 135/88; PULSE 90; RESP 17; TEMP 36.6; O2SAT 96; BMI 47.1
--- NOTE | 2024-02-29 13:51 | CTR_ITS ---
PROCEDURE INFORMATION: Exam: CT Abdomen And Pelvis With Contrast Exam date and time: 02/29/2024 2:33 PM Age: 28 years old Clinical indication: Fever; Abdominal pain; Generalized; Additional info: Abdominal pain, fever TECHNIQUE: Imaging protocol: Computed tomography of the abdomen and pelvis with contrast. Radiation optimization: All CT scans at this facility use at least one of these dose optimization techniques: automated exposure control; mA and/or kV adjustment per patient size (includes targeted exams where dose is matched to clinical indication); or iterative reconstruction. Contrast material: OMNI 350; Contrast volume: 100 ml; Contrast route: INTRAVENOUS (IV); COMPARISON: CT abdomen pelvis w con* [id number] 04/02/2023 1:16 PM RADIATION DOSE METRICS: Total DLP (mGy-cm): 1272.68 FINDINGS: Liver: Mild hepatic steatosis. Hepatomegaly no focal hepatic lesion. Gallbladder and biliary ducts: Normal. No calcified stones. No ductal dilation. Pancreas: Normal. No ductal dilation. Spleen: Normal. No splenomegaly. Adrenal glands: Normal. No mass. Kidneys and ureters: Normal. No hydronephrosis. Stomach and bowel: Unremarkable. No obstruction. No mucosal thickening. Appendix: No evidence of appendicitis. Intraperitoneal space: Unremarkable. No free air. No significant fluid collection. Vasculature: Pelvic phleboliths. Lymph nodes: Unremarkable. No enlarged lymph nodes. Urinary bladder: Unremarkable as visualized. Reproductive: Unremarkable as visualized. Bones/joints: Unremarkable. No acute fracture. Soft tissues: Unremarkable. CT/CT abdomen pelvis w con* [id number] IMPRESSION: No acute intra-abdominal process.
[2024-02-29 14:04] LABS: Basophils % 0.4 %; Eosinophils # 0.1 10^3/uL (0.0-0.8); Eosinophils % 0.9 %; Hematocrit 44.5 % (36-47); Lymphocytes % 30.3 %; Mean Corpuscular HGB Conc 31.9 g/dL (30-55); Mean Corpuscular Hemoglobin 25.8 pg (27-33); Mean Corpuscular Volume 80.9 fl (85-98); Mean Platelet Volume 9.9 fL (7.4-10.4); Monocytes # 0.5 10^3/uL (0.2-0.9); Monocytes % 7.5 %; Neutrophils # 4.06 10^3/uL (1.8-7.7); Neutrophils % 60.8 %; Nucleated Red Blood Cells % 0 %; Platelet Count 367 10^3/cmm (157-399); Red Cell Distribution Width 14.9 % (12.1-15.1); White Blood Count 6.69 10^3/uL (3.29-11.43)
[2024-02-29 14:07] VITALS: RESP 16; O2SAT 97
[2024-02-29] MEDS: ondansetron 2 mg/ML SDV 2 mL 4 MG IVP ×2 (14:07→16:23)
[2024-02-29] MEDS: sodium chloride 0.9% 1,000 ML 999 ML IV (14:07)
[2024-02-29] MEDS: fentaNYL 50 mcg/mL INJ 2mL IVP (14:07)
[2024-02-29 14:19] LABS: HCG, Serum Qual Negative (Negative)
[2024-02-29 14:20] LABS: Alanine Aminotransferase 38 U/L (0-33); Albumin Level 4.3 g/dL (3.5-5.2); Alkaline Phosphatase 73 U/L (35-105); Anion Gap 15.9 (5-19); Aspartate Amino Transferase 29 U/L (0-32); Blood Urea Nitrogen 7 mg/dL (6-20); Calcium 9.2 mg/dL (8.5-10.5); Carbon Dioxide 24 mmol/L (22-29); Chloride 102 mmol/L (98-107); Creatinine Clr Calc Pharmacy 242.1581; Globulin 3.9 g/dL (1.3-4.6); Glomerular Filtration Rate 146.9 mL/min (90-130); Glucose 95 mg/dL (65-115); Lipase 23 U/L (13-60); Osmolality Calculated 284 mOsm/kg (285-295); Potassium 3.9 mmol/L (3.5-5.1); Sodium 138 mmol/L (136-145); Total Bilirubin 0.6 mg/dL (0.15-1.2); Total Protein 8.2 g/dL (6.6-8.7)
[2024-02-29] MEDS: iohexol 350 mg/mL 500 mL Btl (per mL) IV (14:38)
[2024-02-29 14:40] LABS: Urine Appearance Clear (CLEAR); Urine Color Yellow (Yellow); pH Urine 8 (5-7)
[2024-02-29 14:41] LABS: Add Urine Culture? No; Add Urine Microscopic? YES; Bacteria Urine TRACE /hpf; Bilirubin Urine Neg (Negative); Blood Urine Neg (Negative); Glucose Urine UA Norm (Normal); Ketones Urine Negative (Negative); Leukocyte Esterase Urine Trace (Negative); Nitrate Urine Negative (Negative); Protein Urine Neg (Negative); Specific Gravity, Urine 1.015 (1.005-1.030); Squamous Epithelial Cell Urine 0-4 /hpf (0-5); Urobilinogen Urine Norm (Negative); WBC Urine 0-4 /hpf (0-5)
[2024-02-29 15:22] VITALS: BP 111/76; PULSE 98; O2SAT 96
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
[2024-02-29] MEDS: ketorolac 30 mg/mL INJ 15 MG IVP (15:34)
--- NOTE | 2024-02-29 15:40 | USR_ITS ---
PROCEDURE INFORMATION: Exam: US Pelvis, Transvaginal, Non-Obstetric Exam date and time: 02/29/2024 4:32 PM Age: 28 years old Clinical indication: Pelvic pain; Prior surgery; Surgery date: 6+ months; Surgery type: Unsure of dates. Patient states she had polyps removed; Additional info: Rlq pain, R/O torsion TECHNIQUE: Imaging protocol: Real-time transvaginal pelvic (non-obstetric) ultrasound with image documentation. Transvaginal imaging was used for better evaluation of the endometrium, adnexa, and/or cervix. COMPARISON: US pelv w/transvag [id number] 10/28/2023 8:42 AM FINDINGS: Uterus: Uterus is normal. Endometrial stripe is normal. The uterus measures 4.2 x 4.2 x 8.9 cm with endometrial thickness of 9 mm. Right ovary/adnexa: Normal. No mass. Normal ovarian blood flow on color Doppler. The right ovary measures 3.4 x 2.9 x 2.8 cm. Right ovarian cyst measuring 2.7 x 2.4 x 2.4 cm. Left ovary/adnexa: Normal. No mass. Normal ovarian blood flow on color Doppler. The left ovary measures 2.4 x 2.7 x 2 cm. Left ovarian cyst measuring 1.9 x 1.4 x 1.4 cm containing debris. Urinary bladder: Urinary bladder is limited. Intraperitoneal space: No free fluid. US/US transvaginal [id number] IMPRESSION: 1. No ovarian torsion at the time of the examination. 2. Bilateral ovarian cysts with debris in the left ovarian cyst, likely related to hemorrhage.
[2024-02-29 17:32] VITALS: BP 137/82
== END 2024-02-29 17:33 | disposition home or self-care (01) ==
PROVIDERS: Emergency Provider Emergency Medicine; PCP Nurse Practitioner Family
DX: R10.31 Right lower quadrant pain (principal); R11.0 Nausea; R19.7 Diarrhea, unspecified; Z87.891 Personal history of nicotine dependence
CPT/HCPCS: 36415; 74177; 76830; 80053; 81001; 83690; 84703; 85025; 96361; 96374; 96375; 96376; 99285; J1885; J2405; J3010; J7030; Q9967

== ENCOUNTER → 2024-04-22 14:14 | Outpatient (BNVA) | payer BC, MEDICAID, SELFPAY | PROVIDERS: PCP Nurse Practitioner Family; Visit Provider Nurse Practitioner Family | DX: E03.9 Hypothyroidism, unspecified (principal) | CPT/HCPCS: 80061; 84443; 85025 ==

== ENCOUNTER → 2024-04-23 08:07 | Outpatient (BNVA) | payer BC, MEDICAID, SELFPAY | PROVIDERS: PCP Nurse Practitioner Family; Visit Provider Nurse Practitioner Family | DX: R19.7 Diarrhea, unspecified (principal) | CPT/HCPCS: 87045; 87427; 87449; 87493 ==

== ENCOUNTER → 2024-05-26 10:43 | Outpatient (BNVA) | payer BC, MEDICAID, SELFPAY | PROVIDERS: PCP Nurse Practitioner Family; Visit Provider Internal Medicine | DX: E03.9 Hypothyroidism, unspecified (principal); R79.89 Other specified abnormal findings of blood chemistry; L29.9 Pruritus, unspecified | CPT/HCPCS: 36415; 80048; 82306; 82310; 82784; 83516; 83970; 84439; 84443; 86003; 86008 ==

== ENCOUNTER 2024-05-27 12:00 | Outpatient (CLI) | payer BC, MEDICAID, SELFPAY ==
--- NOTE | 2024-05-27 12:00 | US_ITS ---
WS: [id number] THYROID ULTRASOUND HISTORY: hypothyroidism COMPARISON: 07/02/2019 Right lobe: 1.8 cm x 1.8 cm x 5.0 cm (w x ap x l). Volume: 7.6 cm3. Top normal size thyroid. Heterogeneous slightly lobulated gland. No discrete mass. No color Doppler s ubmitted. Left lobe: 2.4 cm x 2.1 cm x 4.8 cm (w x ap x l). Volume: 12.0 cm3. Enlarged heterogeneous slightly lobulated gland. There is no discrete nodule identified. No color Dop pler was submitted. Isthmus: 0.4 cm. US/US thyroid [id number] IMPRESSION: 1. Mildly enlarged heterogeneous thyroid. Gland is similar in appearance to th e prior study with changes of chronic thyroiditis. No color Doppler was submitt ed therefore cannot evaluate hypervascularity throughout the gland. 2. No thyroid nodule.
== END 2024-05-27 12:02 | disposition home or self-care (01) ==
PROVIDERS: PCP Nurse Practitioner Family; Visit Provider Internal Medicine
DX: E03.9 Hypothyroidism, unspecified (principal); E07.89 Other specified disorders of thyroid; E04.9 Nontoxic goiter, unspecified
CPT/HCPCS: 76536

== ENCOUNTER 2024-08-02 13:04 | Emergency (ER) | payer BC, MEDICAID, SELFPAY ==
--- NOTE | 2024-08-02 13:07 | USR_ITS ---
PROCEDURE INFORMATION: Exam: US Pelvis, Transvaginal, Non-Obstetric Exam date and time: 08/02/2024 2:32 PM Age: 29 years old Clinical indication: Vaginal bleeding TECHNIQUE: Imaging protocol: Real-time transvaginal pelvic (non-obstetric) ultrasound with image documentation. Transvaginal imaging was used for better evaluation of the endometrium, adnexa, and/or cervix. COMPARISON: US transvaginal [id number] 02/29/2024 4:32 PM FINDINGS: Uterus: The uterus measures 10.1 x 5.7 x 6.6 cm and is homogeneous. Endometrium is thickened and contains calcifications measuring 2.5 cm. There are incidental benign nabothian cysts. Right ovary/adnexa: Right ovary measures 2.8 x 1.6 x 1.6 cm with a volume of 3.9 cc. Normal vascularity. No mass. Left ovary/adnexa: Left ovary measures 2.4 x 1.8 x 1.8 cm with a volume of 4.2 cc. Normal vascularity. No mass. Urinary bladder: Urinary bladder is limited. Intraperitoneal space: No free fluid. US/US transvaginal [id number] IMPRESSION: 1. There is no free fluid in the cul-de-sac. 2. Endometrium is thickened. Differential includes endometrial hyperplasia, polyps, or neoplasm.
[2024-08-02 13:20] VITALS: BP 143/86; PULSE 104; RESP 18; TEMP 36.6; O2SAT 94; BMI 42.7
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
[2024-08-02 13:59] LABS: Basophils % 0.3 %; Eosinophils # 0.1 10^3/uL (0.0-0.8); Eosinophils % 0.5 %; Hematocrit 40.1 % (36-47); Lymphocytes # 1.7 10^3/uL (0.8-4.8); Lymphocytes % 18.4 %; Mean Corpuscular HGB Conc 32.9 g/dL (30-55); Mean Corpuscular Hemoglobin 27.6 pg (27-33); Mean Corpuscular Volume 83.9 fl (85-98); Mean Platelet Volume 10.2 fL (7.4-10.4); Monocytes # 0.7 10^3/uL (0.2-0.9); Monocytes % 7.1 %; Neutrophils # 6.81 10^3/uL (1.8-7.7); Neutrophils % 73.5 %; Nucleated Red Blood Cells % 0 %; Platelet Count 371 10^3/cmm (157-399); Red Blood Count 4.78 10^6/uL (3.85-5.65); Red Cell Distribution Width 13.4 % (12.1-15.1); White Blood Count 9.28 10^3/uL (3.29-11.43)
[2024-08-02 14:25] LABS: Alanine Aminotransferase 64 U/L (0-33); Albumin Level 3.9 g/dL (3.5-5.2); Alkaline Phosphatase 104 U/L (35-105); Anion Gap 17.8 (5-19); Aspartate Amino Transferase 42 U/L (0-32); Blood Urea Nitrogen 8 mg/dL (6-20); Calcium 9.6 mg/dL (8.5-10.5); Carbon Dioxide 21 mmol/L (22-29); Chloride 101 mmol/L (98-107); Creatinine Clr Calc Pharmacy 226.6822; Globulin 3.5 g/dL (1.3-4.6); Glomerular Filtration Rate 145.9 mL/min (90-130); Glucose 101 mg/dL (65-115); Osmolality Calculated 280 mOsm/kg (285-295); Potassium 3.8 mmol/L (3.5-5.1); Sodium 136 mmol/L (136-145); Total Bilirubin 0.4 mg/dL (0.15-1.2); Total Protein 7.4 g/dL (6.6-8.7)
[2024-08-02 14:27] LABS: HCG, Serum Qual Negative (Negative)
[2024-08-02] MEDS: ketorolac 30 mg/mL INJ IVP (15:24)
[2024-08-02 15:27] VITALS: BP 108/86; PULSE 87; RESP 16; O2SAT 99
[2024-08-02] MEDS: cefTRIAXone 500 MG in water for injection-sterile 1 ML IM (16:42)
[2024-08-02 16:50] VITALS: BP 110/80; PULSE 84; O2SAT 94
[2024-08-02 19:08] LABS: Chlamydia Trachomatis NOT DETECTED
[2024-08-02 21:44] LABS: Neisseria Gonorrhea NOT DETECTED
== END 2024-08-02 16:50 | disposition home or self-care (01) ==
PROVIDERS: Emergency Medicine; Emergency Provider Family Medicine; PCP Nurse Practitioner Family
DX: N92.1 Excessive and frequent menstruation with irregular cycle (principal)
CPT/HCPCS: 76830; 80053; 84703; 85025; 87070; 87205; 87210; 87491; 87591; 96372; 96374; 99284; E0352; J0696; J1885

== ENCOUNTER → 2024-09-02 16:39 | Outpatient (BNVA) | payer BC, MEDICAID, SELFPAY | PROVIDERS: PCP Nurse Practitioner Family; Visit Provider Nurse Practitioner Family | DX: R39.9 Unspecified symptoms and signs involving the genitourinary system (principal) | CPT/HCPCS: 81000 ==

== ENCOUNTER 2024-09-05 17:44 | Emergency (ER) | payer BC, MEDICAID, SELFPAY ==
[2024-09-05 17:48] VITALS: BP 125/76; PULSE 100; RESP 16; TEMP 36.7; O2SAT 99; BMI 41.3
--- NOTE | 2024-09-05 17:50 | XRR_ITS ---
PROCEDURE INFORMATION: Exam: XR Abdomen Exam date and time: 09/05/2024 6:05 PM Age: 29 years old Clinical indication: Patient HX: Constipation x 3 days; Has been on liquid diet for 7 days-scheduled for bariatric surg on 09/07/24 TECHNIQUE: Imaging protocol: Radiologic exam of the abdomen. Views: Frontal supine view of the abdomen. 1 View. COMPARISON: CT abdomen pelvis w con* [id number] 02/29/2024 2:33 PM FINDINGS: Gastrointestinal tract: Normal. No bowel dilation. No increased stool burden. Bones/joints: Unremarkable. XR/XR KUB [id number] IMPRESSION: No acute findings.
[2024-09-05 18:27] VITALS: BP 140/92; PULSE 109; O2SAT 94
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
--- NOTE | 2024-09-05 21:21 | PC.NURSE ---
Per Dr Stewart's orders pt sent home with Milk of Mag, Lactulose, Mineral Oil and a bottle of Magnesium Citrate.
[2024-09-05 21:22] VITALS: BP 126/89; PULSE 97; RESP 18; O2SAT 92
== END 2024-09-05 21:23 | disposition home or self-care (01) ==
PROVIDERS: Emergency Provider Emergency Medicine; PCP Nurse Practitioner Family
DX: K59.00 Constipation, unspecified (principal)
CPT/HCPCS: 74018; 99283

== ENCOUNTER → 2024-09-29 12:41 | Outpatient (BNVA) | payer BC, MEDICAID, SELFPAY | PROVIDERS: PCP Nurse Practitioner Family; Visit Provider Registered Nurse Neonatal Intensive Care | DX: J10.1 Influenza due to other identified influenza virus with other respiratory manifestations (principal) | CPT/HCPCS: 87400 ==

== ENCOUNTER → 2024-12-09 07:46 | Outpatient (BNVA) | payer BC, MEDICAID, SELFPAY | PROVIDERS: PCP Nurse Practitioner Family; Visit Provider Podiatrist Foot & Ankle Surgery | DX: Q82.8 Other specified congenital malformations of skin (principal); S99.922A Unspecified injury of left foot, initial encounter; X58.XXXA Exposure to other specified factors, initial encounter; M21.622 Bunionette of left foot; M25.872 Other specified joint disorders, left ankle and foot | CPT/HCPCS: 73630 ==

== ENCOUNTER → 2024-12-30 07:38 | Outpatient (BNVA) | payer BC, MEDICAID, SELFPAY | PROVIDERS: PCP Nurse Practitioner Family; Visit Provider Podiatrist Foot & Ankle Surgery | DX: M25.879 Other specified joint disorders, unspecified ankle and foot (principal); M25.872 Other specified joint disorders, left ankle and foot; S99.922A Unspecified injury of left foot, initial encounter; X58.XXXA Exposure to other specified factors, initial encounter; M21.622 Bunionette of left foot; Q82.8 Other specified congenital malformations of skin; Z90.3 Acquired absence of stomach [part of] | CPT/HCPCS: 73620 ==

== ENCOUNTER → 2025-02-22 14:00 | Outpatient (BNVA) | payer BC, MEDICAID, SELFPAY | PROVIDERS: PCP Nurse Practitioner Family; Visit Provider Podiatrist Foot & Ankle Surgery | DX: L60.8 Other nail disorders (principal) | CPT/HCPCS: 36415; 80053 ==

== ENCOUNTER → 2025-03-08 12:44 | Outpatient (BNVA) | payer BC, MEDICAID, SELFPAY | PROVIDERS: PCP Nurse Practitioner Family; Visit Provider Nurse Practitioner Family | DX: E55.9 Vitamin D deficiency, unspecified (principal); E03.9 Hypothyroidism, unspecified | CPT/HCPCS: 80053; 80061; 82306; 82607; 84443; 85025 ==

== ENCOUNTER 2025-03-16 12:57 | Outpatient (CLI) | payer BC, MEDICAID, SELFPAY ==
--- NOTE | 2025-03-16 14:15 | CT_ITS ---
WS: [id number] CT ABDOMEN AND PELVIS WITH CONTRAST HISTORY: R10.31 - Right lower quadrant pain TECHNIQUE: Imaging performed of the abdomen and pelvis with IV contrast. Single phase imaging of the abdomen. Coronal and sagittal reformats are submitted. All CT scans at [facility] use at least one of these dose optimization techniques: automated exposure control; mA and/or kV adjustment per patient size (includes targeted exams where dose is matched to clinical indication); or iterative reconstruction. IV CONTRAST: Omnipaque 350; 100 mL IV. Oral contrast: Yes. DLP: 767.83 mGy.cm COMPARISON: 02/29/2024 Lower thorax: Lung bases are clear. Heart is normal size. No hiatal hernia. Liver/biliary system: Mild hepatic steatosis. Normal portal vein. No intrahepatic duct dilatation. Gallbladder: Normal. No gallstones or wall thickening. No pericholecystic fluid. Pancreas: Normal size pancreas and pancreatic duct. No adjacent inflammation. Spleen: Normal size spleen. No mass or infarct. Adrenal glands: Normal. Right kidney: Normal. Left kidney: Normal. Aorta: Normal. Lymphadenopathy: None. Free fluid: Small amount of free fluid in the pelvis. GI tract: No GI tract obstruction. Prior gastric bypass surgery. Mild diffuse constipation. The appendix is not definitely identified but there are no secondary findings of appendicitis. No evidence for colitis. Abdominal wall: Unremarkable abdominal wall. No hernia. Pelvis: Free fluid in the pelvis. Physiologic amount of free fluid. Uterus is anteverted. Small follicles within the RIGHT ovary. 8 mm area of nodular enhancement in the anterior myometrium is probably a fibroid. Bones: Unremarkable. CT/CT abdomen pelvis w con* [id number] IMPRESSION: 1. Small amount of free fluid in the pelvis is physiologic in amount. May be f rom a ruptured RIGHT ovarian cyst. 2. The appendix is not identified. No secondary findings of appendicitis. 3. No GI tract obstruction. 4. Prior gastric bypass. 5. No renal obstruction.
[2025-03-16] MEDS: iohexol 350 mg/mL 500 mL Btl (per mL) PO (14:26)
[2025-03-16] MEDS: iohexol 350 mg/mL 500 mL Btl (per mL) IV (14:27)
== END 2025-03-16 12:58 | disposition home or self-care (01) ==
LOC: RAD 12:58
PROVIDERS: PCP Nurse Practitioner Family; Visit Provider Nurse Practitioner Family
DX: K62.5 Hemorrhage of anus and rectum (principal); R10.31 Right lower quadrant pain; K59.00 Constipation, unspecified
CPT/HCPCS: 74177

== ENCOUNTER 2025-04-19 13:33 | Outpatient (CLI) | payer BC, MEDICAID, SELFPAY | END 2025-04-19 13:34 | disposition home or self-care (01) | PROVIDERS: PCP Nurse Practitioner Family; Visit Provider Clinical Nurse Specialist Adult Health | DX: R10.11 Right upper quadrant pain (principal) | CPT/HCPCS: 82306; 84443 ==

== ENCOUNTER 2025-05-05 08:33 | Outpatient (CLI) | payer BC, MEDICAID, SELFPAY ==
[2025-05-05 08:52] LABS: HCG Qualitative Urine. Negative (Negative)
--- NOTE | 2025-05-05 08:54 | NM_ITS ---
WS: [id number] NUCLEAR MEDICINE HIDA SCAN CLINICAL INFORMATION: RUQ PAIN TECHNIQUE: Following intravenous administration of 7.6 mCi of technetium 99m mebrofenin, images of the abdomen were obtained over the course of 60 minutes. Next, gallbladder ejection fraction was determined by obtaining preprandial and one-hour postprandial images of the gallbladder following oral ingestion of Ensure. COMPARISON: None. FINDINGS: Hepatomegaly. Normal hepatic uptake at 5 minutes. Normal hepatic excretion. Gallbladder is visualized by 40 minutes. No evidence of acute cholecystitis. Normal common bile duct and small bowel activity. Gallbladder ejection fraction 90% within normal limits. No evidence of chronic cholecystitis. NM/NM hepatobiliary w phar* [id number] IMPRESSION: 1. No evidence of acute or chronic cholecystitis. 2. Gallbladder ejection fraction 90% within normal limits.
== END 2025-05-05 08:34 | disposition home or self-care (01) ==
LOC: RAD 08:34
PROVIDERS: PCP Nurse Practitioner Family; Visit Provider Clinical Nurse Specialist Adult Health
DX: R10.11 Right upper quadrant pain (principal)
CPT/HCPCS: 78227; 81025; A9537